=== PATIENT | male | born 1970 | race Hispanic/Latino ===

== ENCOUNTER → 2019-02-10 | Day surgery (SDC) | payer OTHER ==
[~2019-02-10] MED LIST: AUGMENTIN 875-1 EACH PO; BACITRACIN 50,000 UNIT VIAL ONE; BUPIVACAINE 0.25% 30ML SDV INJ ONE; BUPIVACAINE 0.25%/EPI 30ML SDV INJ ONE; CEFAZOLIN SOD 2 GM/D5W 50ML 50 ML IV ONE; DEXAMETHASONE SOD PHOS INJ 4 MG/ML VIAL ONE; FENTANYL CITRATE/PF 100MCG/2 ML INJ ONE; KETOROLAC TROMETHAMINE 30 MG/ML VIAL ONE; LIDOCAINE HCL 2% LOCAL INJ 5 ML SDV VIAL INJ ONE; MIDAZOLAM HCL 2 MG/2 ML VIAL ONE; ONDANSETRON HCL INJ 2MG/ML 2ML 2 MG/ML VIAL ONE; PROPOFOL IV EMULSION 10 MG/ML 20 ML VIAL ONE; SEVOFLURANE INHAL SOLN 250 ML PEN BTL ONE
[2019-02-10 09:26] VITALS: BP 124/89
--- NOTE | 2019-02-10 14:17 | Operative Report ---
DATE OF PROCEDURE: 02/10/2019 SURGEON: Kyle Coy MD PREOPERATIVE DIAGNOSIS: Right inguinal hernia. POSTOPERATIVE DIAGNOSIS: Right inguinal hernia. PREOPERATIVE INDICATIONS: Treat disease, prevent hernia-related complications such as incarceration or strangulation. PROCEDURE: Open right inguinal hernia repair with mesh. ANESTHESIA: General. QUICK SKETCH ARTIST: Mahad Agarwal, surgical garment fitter (needed due to complexity of case). FLUIDS: 1 L of crystalloid. ESTIMATED BLOOD LOSS: 10 mL. DRAINS: None. COMPLICATIONS: None. SPECIMENS: None. GRAFTS: Polypropylene mesh plug. PROCEDURE IN DETAIL: The patient was brought to the operating room and was intubated under general endotracheal anesthesia. A Frost catheter was placed to decompress the bladder. He was sterilely prepped and draped in the usual fashion and a preprocedure pause was performed identifying the patient, use of perioperative antibiotics, intended procedure, and staff surgeon. A primary right iliac fossa incision was made. Dissection was carried through the subcutaneous tissue down to the level of external oblique aponeurosis and aponeurotic length carvajal incision was made being careful not to injure any neurovascular structures beneath. I then encircled the cord structures with a [place] drain. The ilioinguinal nerve was identified during dissection. So, this was ligated in continuity with silk suture and divided. I was unable to identify any indirect hernia. However, there was a moderate size direct inguinal hernia. This was repaired with a mesh plug, which was used to approximate the plug to the conjoint tendon as well as shelving edge in the inguinal ligament using multiple 2-0 Prolene sutures in an interrupted fashion. Once the defect was reinforced with a plug, I then closed the external oblique aponeurosis with 2-0 Vicryl suture in a continuous fashion. Hemostasis was verified. 3-0 Vicryl suture was used to close Daniel's in interrupted fashion. Skin was closed with 4-0 Monocryl suture in a subcuticular fashion, 0.25% Bupivacaine was used at the incision sites for local anesthesia and the patient tolerated the procedure well. Type of wound is type 1, clean. Kyle Coy MD [facility] [place]/MODL /[id number] MTDD
== END | disposition home or self-care (01) ==
LOC: OR 05:28
PROVIDERS: ATTEND Surgery
DX: K40.90 Unilateral inguinal hernia, without obstruction or gangrene, not specified as recurrent (principal); J06.9 Acute upper respiratory infection, unspecified; K44.9 Diaphragmatic hernia without obstruction or gangrene; F41.9 Anxiety disorder, unspecified; F17.210 Nicotine dependence, cigarettes, uncomplicated; Z01.810 Encounter for preprocedural cardiovascular examination; Z68.35 Body mass index [BMI] 35.0-35.9, adult
CPT/HCPCS: 49505; 93005; C1781; J0690; J1100; J1885; J2001; J2250; J2405; J2704